=== PATIENT | female | born 1985 ===

== ENCOUNTER 2023-05-13 14:34 | Outpatient (CLI) | payer OTHER | END 2023-05-13 14:35 | disposition home or self-care (01) | LOC: PRENATAL 14:34 | PROVIDERS: ATTEND Obstetrics & Gynecology Maternal & Fetal Medicine | DX: O35.3XX0 Maternal care for (suspected) damage to fetus from viral disease in mother, not applicable or unspecified (principal); O09.529 Supervision of elderly multigravida, unspecified trimester; O34.219 Maternal care for unspecified type scar from previous cesarean delivery; O44.00 Complete placenta previa NOS or without hemorrhage, unspecified trimester; Z3A.19 19 weeks gestation of pregnancy ==

== ENCOUNTER → 2023-08-10 14:37 | Outpatient (CLI) | payer OTHER | END | disposition home or self-care (01) | LOC: PRENATAL 14:37 | PROVIDERS: ATTEND Obstetrics & Gynecology Maternal & Fetal Medicine | DX: O26.849 Uterine size-date discrepancy, unspecified trimester (principal); O36.8199 Decreased fetal movements, unspecified trimester, other fetus; O09.529 Supervision of elderly multigravida, unspecified trimester; O34.219 Maternal care for unspecified type scar from previous cesarean delivery; Z3A.32 32 weeks gestation of pregnancy ==

== ENCOUNTER 2023-09-01 00:50 | Outpatient (CLI) | payer OTHER | END 2023-09-01 14:24 | disposition home or self-care (01) | LOC: OBS/DEL 00:50 | PROVIDERS: ATTEND Student in an Organized Health Care Education/Training Program | DX: O26.893 Other specified pregnancy related conditions, third trimester (principal); S79.811A Other specified injuries of right hip, initial encounter; S89.81XA Other specified injuries of right lower leg, initial encounter; Z3A.35 35 weeks gestation of pregnancy; W07.XXXA Fall from chair, initial encounter; Y93.89 Activity, other specified; Y92.89 Other specified places as the place of occurrence of the external cause; O26.849 Uterine size-date discrepancy, unspecified trimester; O36.8199 Decreased fetal movements, unspecified trimester, other fetus ==

== ENCOUNTER 2023-09-23 07:18 | Inpatient (IN) | payer OTHER ==
[~2023-09-23] VITALS: Ht 157.5 cm; Wt 2.7 kg
[2023-09-23 09:23] LABS: HEMATOCRIT 32.9 % (36.0-45.00); HEMOGLOBIN 11.6 g/dL (12.0-15.00); MEAN CELL VOLUME 86.6 fL (80.00-100.00); MEAN CORPUSCULAR HEMOGLOBIN 30.5 pg (27.00-32.0); MEAN CORPUSCULAR HGB CONC 35.2 g/dl (32.0-36.0); PLATELET COUNT 311 K/uL (150-450); RED CELL DISTRIBUTION WIDTH 13.9 % (11.5-14.5)
[2023-09-23 09:26] LABS: URINE APPEARANCE Cloudy; URINE BILIRRUBIN Negative (NEGATIVE); URINE BLOOD Negative; URINE COLOR Dark Yellow; URINE GLUCOSE Negative (NEGATIVE); URINE LEUKOCYTE Moderate; URINE NITRATE Negative; URINE PROTEIN Trace (NEGATIVE)
[2023-09-23] MEDS ORDERED: CEFAZOLIN SODIUM 1,000 MG VIAL ONE (09:26)
[2023-09-23 09:27] LABS: URINE BACTERIA 3026.3 uL (0.0-1933); URINE EPITHELIAL CELLS 57.6 uL (0.0-38.8); URINE RBC 2.8 uL (0.0-20.8); URINE WBC 215.6 uL (0.0-23.2)
[2023-09-23 09:49] LABS: INR < 0.93; PARTIAL THROMBOPLASTIN TIME 27.7 SECONDS (22.0-34.0); PROTHROMBIN TIME 9.8 SECONDS (9.0-11.5)
[2023-09-23 10:19] LABS: URINE YEAST MODERATE /hpf
[2023-09-23 10:47] LABS: ALBUMIN 2.7 gm/dL (3.4-5.0); BILIRUBIN TOTAL 0.42 mg/dL (0.3-1.2); CALCIUM 8.7 mg/dL (8.5-10.1); CREATININE SERUM 0.54 mg/dL (0.55-1.02); GFR 126.35; GLOBULINA 3.5 G/DL (2.4-3.5); POTASSIUM 4.44 mEq/L (3.5-5.1); TOTAL PROTEIN 6.2 gm/dL (6.4-8.2)
[2023-09-23] MEDS ORDERED: ERYTHROMYCIN BASE 3.5 GM OINT...G. OP ONE (12:50)
[2023-09-23] MEDS ORDERED: OXYTOCIN 10 UNITS/ML VIAL ONE ×2 (12:50→17:13)
[2023-09-23] MEDS ORDERED: CEFAZOLIN SODIUM 1,000 MG VIAL IV SCH (13:45)
[2023-09-23] MEDS ORDERED: ERYTHROMYCIN BASE 1 GM TUBE OP ONE (14:00)
[2023-09-23] MEDS ORDERED: OXYTOCIN 10 UNITS/ML VIAL IV ONE (14:00)
[2023-09-23] MEDS ORDERED: MEPERIDINE HCL/PF 50 MG/ML VIAL IV SCH (15:07)
[2023-09-23] MEDS ORDERED: SIMETHICONE 125 MG CAPSULE PO SCH (15:12)
[2023-09-23] MEDS ORDERED: PROMETHAZINE HCL 50 MG/ML AMPUL IV SCH (15:12)
[2023-09-23] MEDS ORDERED: OXYTOCIN 1,000 ML IV SCH (15:15)
[2023-09-23] MEDS ORDERED: CHLORHEXIDINE GLUCONATE 120 ML BOTTLE TOP SCH (15:15)
[2023-09-23] MEDS ORDERED: ERYTHROMYCIN BASE 1 GM TUBE OP SCH (15:15)
[2023-09-23] MEDS ORDERED: RINGERS SOLUTION,LACTATED 1,000 ML IV SCH (15:15)
[2023-09-23 23:26] LABS: HEMATOCRIT 32.4 % (36.0-45.00); MEAN CELL VOLUME 85.4 fL (80.00-100.00); MEAN CORPUSCULAR HGB CONC 34.3 g/dl (32.0-36.0); PLATELET COUNT 308 K/uL (150-450)
[2023-09-23 23:30] LABS: HEMOGLOBIN 11.1 g/dL (12.0-15.00); MEAN CORPUSCULAR HEMOGLOBIN 29.2 pg (27.00-32.0)
[2023-09-24] MEDS ORDERED: OxyCODONE HCL/APAP UD (PERCOCET) PO PRN (12:00)
[2023-09-24] MEDS ORDERED: IBUprofen 800 MG TABLET PO SCH (13:00)
[2023-09-26] MEDS ORDERED: IBUPROFEN800 MG PO (12:17)
[2023-09-26] MEDS ORDERED: COLACE100 MG PO (12:17)
[2023-09-26] MEDS ORDERED: OXYC1TAB9 PO (12:17)
== END 2023-09-26 13:06 | disposition home or self-care (01) | DRG 785 ==
LOC: OB/GYN 07:18 → LDR 07:18 → O/R 14:26 → OB/GYN 14:42
PROVIDERS: Obstetrics & Gynecology; ADMIT Student in an Organized Health Care Education/Training Program; ATTEND Student in an Organized Health Care Education/Training Program
PROC: 0UB70ZZ Excision of Bilateral Fallopian Tubes, Open Approach (ICD-10-PCS; 2023-09-23)
PROC: 4A1HXCZ Monitoring of Products of Conception, Cardiac Rate, External Approach (ICD-10-PCS; 2023-09-23)
PROC: 10D00Z1 Extraction of Products of Conception, Low, Open Approach (ICD-10-PCS; principal; 2023-09-23 12:00)
DX: O34.211 Maternal care for low transverse scar from previous cesarean delivery (principal); Z30.2 Encounter for sterilization; Z37.0 Single live birth; Z20.822 Contact with and (suspected) exposure to COVID-19; Z3A.38 38 weeks gestation of pregnancy